=== PATIENT | female | born 1955 | race Hispanic/Latino ===

== ENCOUNTER 2018-01-04 08:57 | Outpatient (CLI) | payer OTHER | END 2018-01-04 08:58 | disposition home or self-care (01) | LOC: BICMAMMO 08:57 | PROVIDERS: ATTEND Family Medicine | DX: Z12.31 Encounter for screening mammogram for malignant neoplasm of breast (principal); Z00.00 Encounter for general adult medical examination without abnormal findings; Z80.3 Family history of malignant neoplasm of breast; R92.1 Mammographic calcification found on diagnostic imaging of breast | CPT/HCPCS: 77063; 77067 ==

== ENCOUNTER 2019-03-29 08:26 | Outpatient (CLI) | payer OTHER ==
--- NOTE | 2019-03-29 09:54 | MMO ---
Bilateral MAMMO Bilat Screen [facility]. CLINICAL HISTORY: Patient is 63 years old and is seen for screening. The patient has the following family history of breast cancer: sister, at age 60. The patient has no personal history of cancer. VIEWS: The views performed were: bilateral craniocaudal with tomosynthesis and bilateral mediolateral oblique with tomosynthesis. FILMS COMPARED: The present examination has been compared to prior imaging studies performed at [facility] on 09/14/2014, 11/06/2015, 11/26/2016 and 01/04/2018. This study has been interpreted with the assistance of computer-aided detection. MAMMOGRAM FINDINGS: There are scattered fibroglandular densities. There are stable benign appearing calcifications seen in both breasts. There are no suspicious masses, suspicious calcifications, or new areas of architectural distortion. IMPRESSION: THERE IS NO MAMMOGRAPHIC EVIDENCE OF MALIGNANCY. A ROUTINE FOLLOW-UP MAMMOGRAM IN 1 YEAR IS RECOMMENDED. THE RESULTS OF THIS EXAM WERE SENT TO THE PATIENT. ACR BI-RADS Category 2 - Benign finding MAMMOGRAPHY NOTE: 1. A negative mammogram report should not delay a biopsy if a dominant of clinically suspicious mass is present. 2. Approximately 10% to 15% of breast cancers are not detected by mammography. 3. Adenosis and dense breasts may obscure an underlying neoplasm. Reported by: GERSON DURBIN MD Electonically Signed: [id number]
== END 2019-03-29 08:27 | disposition home or self-care (01) ==
LOC: BICMAMMO 08:26
PROVIDERS: ATTEND Family Medicine
DX: Z12.31 Encounter for screening mammogram for malignant neoplasm of breast (principal); Z80.3 Family history of malignant neoplasm of breast
CPT/HCPCS: 77063; 77067

== ENCOUNTER 2020-04-18 12:00 | Outpatient (CLI) | payer OTHER ==
--- NOTE | 2020-04-18 12:29 | MMO ---
Bilateral MAMMO Bilat Screen [facility]. CLINICAL HISTORY: Patient is 64 years old and is seen for screening. The patient has the following family history of breast cancer: sister, at age 60. The patient has no personal history of cancer. VIEWS: The views performed were: bilateral craniocaudal with tomosynthesis and bilateral mediolateral oblique with tomosynthesis. FILMS COMPARED: The present examination has been compared to prior imaging studies performed at [facility] on 11/06/2015, 11/26/2016, 01/04/2018 and 03/29/2019. This study has been interpreted with the assistance of computer-aided detection. MAMMOGRAM FINDINGS: There are scattered fibroglandular densities. There are no suspicious masses, suspicious calcifications, or new areas of architectural distortion. IMPRESSION: THERE IS NO MAMMOGRAPHIC EVIDENCE OF MALIGNANCY. A ROUTINE FOLLOW-UP MAMMOGRAM IN 1 YEAR IS RECOMMENDED. THE RESULTS OF THIS EXAM WERE SENT TO THE PATIENT. ACR BI-RADS Category 1 - Negative MAMMOGRAPHY NOTE: 1. A negative mammogram report should not delay a biopsy if a dominant of clinically suspicious mass is present. 2. Approximately 10% to 15% of breast cancers are not detected by mammography. 3. Adenosis and dense breasts may obscure an underlying neoplasm. Reported by: GERSON DURBIN MD Electonically Signed: [id number]
== END 2020-04-18 12:01 | disposition home or self-care (01) ==
LOC: BICMAMMO 12:00
PROVIDERS: ATTEND Family Medicine
DX: Z12.31 Encounter for screening mammogram for malignant neoplasm of breast (principal); Z80.3 Family history of malignant neoplasm of breast
CPT/HCPCS: 77063; 77067

== ENCOUNTER 2020-09-23 08:06 | Outpatient (CLI) | payer MEDICARE | END 2020-09-23 08:07 | disposition home or self-care (01) | LOC: BICMAMMO 08:06 | PROVIDERS: ATTEND Family Medicine | DX: N63.20 Unspecified lump in the left breast, unspecified quadrant (principal); R92.8 Other abnormal and inconclusive findings on diagnostic imaging of breast | CPT/HCPCS: 77065; G0279 ==

== ENCOUNTER 2021-11-06 08:04 | Outpatient (CLI) | payer MEDICARE, OTHER | END 2021-11-06 08:05 | disposition home or self-care (01) | LOC: BICMAMMO 08:04 | PROVIDERS: ATTEND Family Medicine | DX: Z12.31 Encounter for screening mammogram for malignant neoplasm of breast (principal); Z80.3 Family history of malignant neoplasm of breast | CPT/HCPCS: 77063; 77067 ==

== ENCOUNTER 2023-01-19 09:52 | Outpatient (CLI) | payer MEDICARE, OTHER | END 2023-01-19 09:53 | disposition home or self-care (01) | LOC: BICMAMMO 09:52 | PROVIDERS: ATTEND Family Medicine | DX: Z12.31 Encounter for screening mammogram for malignant neoplasm of breast (principal); Z13.820 Encounter for screening for osteoporosis; Z78.0 Asymptomatic menopausal state; Z80.3 Family history of malignant neoplasm of breast | CPT/HCPCS: 77063; 77067; 77080 ==

== ENCOUNTER 2024-04-21 07:03 | Outpatient (CLI) | payer MEDICARE, OTHER | END 2024-04-21 07:04 | disposition home or self-care (01) | LOC: BICULT 07:03 | PROVIDERS: ATTEND Family Medicine | DX: R10.84 Generalized abdominal pain (principal); K76.0 Fatty (change of) liver, not elsewhere classified | CPT/HCPCS: 76700 ==

== ENCOUNTER 2024-05-16 10:15 | Outpatient (CLI) | payer MEDICARE, OTHER | END 2024-05-16 10:16 | disposition home or self-care (01) | LOC: BICMRI 10:15 | PROVIDERS: ATTEND Student in an Organized Health Care Education/Training Program | DX: M24.812 Other specific joint derangements of left shoulder, not elsewhere classified (principal); M75.122 Complete rotator cuff tear or rupture of left shoulder, not specified as traumatic ==

== ENCOUNTER 2025-02-06 07:58 | Outpatient (CLI) | payer MEDICARE, OTHER | END 2025-02-06 07:59 | disposition home or self-care (01) | LOC: BICMAMMO 07:58 | PROVIDERS: ATTEND Family Medicine | DX: Z12.31 Encounter for screening mammogram for malignant neoplasm of breast (principal); Z78.0 Asymptomatic menopausal state; Z80.3 Family history of malignant neoplasm of breast | CPT/HCPCS: 77063; 77067; 77080 ==